=== PATIENT | male | born 1995 | race Caucasian/White ===

== ENCOUNTER 2022-03-17 15:24 | Emergency (ER) | payer OTHER ==
[~2022-03-17] VITALS: Ht 175.3 cm; Wt 95.3 kg
[2022-03-17 15:49] VITALS: BP 148/68
[2022-03-17] MEDS ORDERED: LIDOCAINE 5% (PATCH) 1 EA PATCH TP SCH (16:00)
[2022-03-17] MEDS ORDERED: CYCLOBENZAPRINE 10 MG TABLET PO ONE (16:00)
[2022-03-17] MEDS ORDERED: IBUPROFEN 600 MG TABLET PO ONE (16:00)
[2022-03-17] MEDS ORDERED: CYCL5TAB PO (16:04)
[2022-03-17] MEDS ORDERED: LIDO30AD10 TP (16:04)
[2022-03-17] MEDS ORDERED: IBUPROFEN 600 MG TABLET ONE (16:06)
== END 2022-03-17 16:09 | disposition home or self-care (01) ==
LOC: ER 15:39
DX: M54.50 Low back pain, unspecified (principal); M54.2 Cervicalgia; V89.2XXA Person injured in unspecified motor-vehicle accident, traffic, initial encounter; Y93.89 Activity, other specified; Y92.89 Other specified places as the place of occurrence of the external cause; Y99.8 Other external cause status